=== PATIENT | female | born 1990 | race Caucasian/White ===

== ENCOUNTER 2020-03-27 15:24 | Emergency (ER) | payer OTHER ==
[~2020-03-27] VITALS: Ht 162.6 cm; Wt 79.6 kg
[2020-03-27] MEDS ORDERED: TRAZ-257 PO (15:32)
[2020-03-27] MEDS ORDERED: BUSP10TA PO (15:32)
[2020-03-27] MEDS ORDERED: BUPR15TA PO (15:32)
[2020-03-27] MEDS ORDERED: LAMI1TAB7 PO (15:32)
[2020-03-27] MEDS ORDERED: NS 1,000 ML IV ONE (16:30)
[2020-03-27] MEDS ORDERED: ONDANSETRON 4MG/2ML VIAL IV ONE (16:30)
--- NOTE | 2020-03-27 16:57 | REP ---
INDICATION: vaginal bleeding and cramping. COMPARISON: None. TECHNIQUE: Transabdominal scanning is performed. FINDINGS: Scanning demonstrates a single living intrauterine gestation in a free-floating lie. The crown-rump length of the embryonic pole is 32 mm. This corresponds with a gestational age estimate of 10 weeks 0 days. Is heart rate is recorded at 170 beats per minute. There is a hypoechoic area 3.2 x 1.9 x 1.5 cm along the right lateral aspect of the gestational sac which may be a subchorionic bleed. No extra uterine abnormality is noted. IMPRESSION: 1. Viable single intrauterine gestation at 10 weeks 0 days by crown-rump length. ASHLEY by sonography October 23, 2020. 2. Hypoechoic avascular area 3.2 cm in diameter along the right lateral margin of the sac may be a subchorionic bleed. <Electronically signed by Jone Herrera > 03/27/20 [id number]
[2020-03-27 17:02] LABS: BASO % 0.4 % (0.0-1.0); EOS # 0.1 10^3/uL (0.0-0.5); EOS % 0.6 % (0.0-3.0); HEMATOCRIT 39.5 % (36.0-47.0); HEMOGLOBIN 12.9 g/dl (12.0-15.5); LYMPH # 1.3 10^3/uL (1.5-5.0); LYMPH % 15.1 % (24.0-44.0); MEAN CORPUSCULAR HGB CONC 32.7 g/dl (32.0-36.5); MEAN CORPUSCULAR VOLUME 85.7 fl (80.0-96.0); MONO # 0.6 10^3/uL (0.0-0.8); MONO % 7.2 % (0.0-5.0); NEUTROPHILS # 6.5 10^3/uL (1.5-8.5); NEUTROPHILS % 76.2 % (36.0-66.0); PLATELET COUNT, AUTOMATED 236 10^3/uL (150-450); RED BLOOD COUNT 4.61 10^6/uL (4.00-5.40); WHITE BLOOD COUNT 8.5 10^3/uL (4.0-10.0)
[2020-03-27 17:45] LABS: ALBUMIN 3.8 GM/DL (3.2-5.2); ALT/SGPT 24 U/L (12-78); BILIRUBIN,DIRECT < 0.1 MG/DL (0.0-0.2); BILIRUBIN,TOTAL 0.3 MG/DL (0.2-1.0); HCG, SERUM QUANTITATIVE 63800 MIU/ML
[2020-03-27] MEDS ORDERED: RHOGAM 300 MCG (1500 IU) INJ (J2790) IM ONE (17:45)
[2020-03-27 18:42] VITALS: BP 115/68
== END 2020-03-27 18:44 | disposition home or self-care (01) ==
LOC: M ED 15:24
DX: O20.8 Other hemorrhage in early pregnancy (principal); Z3A.10 10 weeks gestation of pregnancy; Z79.899 Other long term (current) drug therapy; Z88.0 Allergy status to penicillin; Z88.8 Allergy status to other drugs, medicaments and biological substances; Z88.5 Allergy status to narcotic agent
CPT/HCPCS: 76801; 80047; 80076; 84702; 85025; 86850; 86901; 96361; 96372; 96374; 99284; J2405; J2790

== ENCOUNTER 2020-09-05 12:03 | Outpatient (CLI) | payer OTHER ==
[~2020-09-05] VITALS: Ht 162.6 cm; Wt 95.0 kg
[~2020-09-05 12:03] MED LIST: BUPR15TA PO; BUSP10TA PO; LAMI1TAB7 PO; TRAZ-257 PO
[2020-09-05 12:10] VITALS: BP 120/61
[2020-09-05] MEDS ORDERED: IRON SUCROSE 300 MG in NS 250 ML OVER 90 MIN. IV ONE (12:30)
[2020-09-05 13:15] VITALS: BP 113/63
[2020-09-05 14:15] VITALS: BP 103/55
[2020-09-05 15:15] VITALS: BP 101/57
[2020-09-05 15:44] VITALS: BP 108/62
== END 2020-09-05 15:50 | disposition home or self-care (01) ==
LOC: M INFU 12:03
PROVIDERS: ATTEND Obstetrics & Gynecology
DX: O99.013 Anemia complicating pregnancy, third trimester (principal); D50.9 Iron deficiency anemia, unspecified; Z3A.32 32 weeks gestation of pregnancy
CPT/HCPCS: 96365; 96366; J1756

== ENCOUNTER 2020-09-19 12:32 | Outpatient (CLI) | payer OTHER ==
[~2020-09-19] VITALS: Ht 162.6 cm; Wt 95.0 kg
[~2020-09-19 12:32] MED LIST changes: +IRON SUCROSE 300 MG in NS 250 ML OVER 90 MIN. IV ONE
[2020-09-19 12:58] VITALS: BP 107/56
[2020-09-19 13:45] VITALS: BP 115/58
[2020-09-19 14:51] VITALS: BP 115/66
== END 2020-09-19 15:00 | disposition home or self-care (01) ==
LOC: M INFU 12:32
PROVIDERS: ATTEND Obstetrics & Gynecology
DX: O99.013 Anemia complicating pregnancy, third trimester (principal); D50.9 Iron deficiency anemia, unspecified; Z3A.32 32 weeks gestation of pregnancy
CPT/HCPCS: 96365; 96366; J1756

== ENCOUNTER → 2020-09-20 | Outpatient (CLI) | payer OTHER ==
[~2020-09-20] MED LIST changes: -IRON SUCROSE 300 MG in NS 250 ML OVER 90 MIN. IV ONE
--- NOTE | 2020-09-20 12:03 | REP ---
INDICATION: GROWTH. COMPARISON: None. TECHNIQUE: Transabdominal obstetric sonography. FINDINGS: Scanning through the gravid uterus demonstrates a viable single intrauterine gestation in cephalic lie. motion is observed and heart rate is recorded at 163 beats per minute. A 3 anterior right lateral placenta is seen, grade 1, without evidence of placenta previa. Closed cervical length is measured at 4.5 cm transabdominally. No extrauterine abnormality is observed. Amniotic fluid is subjectively low, BETI 7.0 cm (8.0-24.8 cm).. The following anatomic structures are identified felt to be unremarkable: cranium, cavum septum pellucidum and falx, four-chamber heart with left ventricular outflow tract view, diaphragm, left-sided stomach, left kidney, urinary bladder. The following additional anatomic structures are less than optimally seen due to position and advanced gestational age: Cerebral ventricles and choroid plexus, cerebellum, face and profile nose and lips, lungs, right ventricular cardiac outflow tract view, right kidney, spine, upper and lower extremities. A three-vessel cord is seen.. Biometry chart: BPD 9.4 cm, 38 weeks 3 days Head circumference 33.5 cm, 38 weeks 2 days Abdominal circumference 33.1 cm, 37 weeks 0 days Femur length 7.3 cm, 37 weeks 1 day Humeral length 6.5 cm, 37 weeks 5 days HC AC ratio normal 1.01 Cephalic index normal 0.80 Estimated weight 3175 g, 6 lb 15 oz, greater than 90th percentile for 35 weeks 2 days IMPRESSION: Viable single intrauterine gestation at 37 weeks 5 days by today's composite sonographic criteria. ASHLEY by today's sonography October 06, 2020. No complication identified. Expected gestational age estimate by LMP 35 weeks 2 days , ASHLEY by LMP October 23, 2020. Estimated weight is greater than 90th percentile for that gestational age estimate. Amniotic fluid is somewhat low subjectively and BETI is 7.0 cm. <Electronically signed by Jone Hrerera > 09/20/20 [id number]
== END ==
LOC: M RAD 10:14
PROVIDERS: ATTEND Obstetrics & Gynecology
DX: Z36.4 Encounter for antenatal screening for fetal growth retardation (principal); Z3A.37 37 weeks gestation of pregnancy; Z87.59 Personal history of other complications of pregnancy, childbirth and the puerperium

== ENCOUNTER 2020-10-08 14:28 | Outpatient (CLI) | payer OTHER ==
[~2020-10-08] VITALS: Ht 162.6 cm; Wt 95.6 kg
[2020-10-08] VITALS (9 sets, daily range): BP systolic 89–116; BP diastolic 51–64
[2020-10-08] MEDS ORDERED: PRENTAB9 PO (14:53)
[2020-10-08] MEDS ORDERED: HOME MED LIST COMPLETE! XX SCH (14:55)
[2020-10-08] MEDS ORDERED: ACETAMINOPHEN 500 MG TAB PO ONE (15:15)
[2020-10-08] MEDS ORDERED: diphenhydrAMINE 50MG CAP PO ONE (15:15)
[2020-10-08] MEDS ORDERED: diphenhydrAMINE 25MG CAP PO ONE (15:30)
[2020-10-08 15:54] LABS: AMORPHOUS SEDIMENT SMALL (NEGATIVE); APPEARANCE, URINE CLOUDY (CLEAR); BACTERIA, URINE AUTO 1+ (NEGATIVE); BILIRUBIN, URINE AUTO NEGATIVE (NEGATIVE); BLOOD, URINE BLOOD NEGATIVE (NEGATIVE); COLOR, URINE YELLOW (YELLOW); GLUCOSE, URINE (UA) AUTO NEGATIVE (NEGATIVE); KETONE, URINE AUTO NEGATIVE (NEGATIVE); LEUKOCYTE ESTERASE, URINE AUTO NEGATIVE (NEGATIVE); MUCUS, URINE SMALL (NEGATIVE); NITRITE, URINE AUTO NEGATIVE (NEGATIVE); PROTEIN, URINE AUTO NEGATIVE (NEGATIVE); RBC, URINE AUTO 1 /HPF (0-3); SPECIFIC GRAVITY URINE AUTO 1.012 (1.002-1.035); SQUAMOUS EPITHELIAL CELL UR AU 2 /HPF (0-6); UROBILINOGEN, URINE AUTO 0.2 mg/dL (0.0-2.0); WBC, URINE AUTO 2 /HPF (0-3)
--- NOTE | 2020-10-08 16:03 | IPNPDOC ---
Text Note Date of Service The patient was seen on 10/08/20. NOTE S: 30yo ASHLEY [id number] @37+6 Presenting with c/o headache and blurry vision. States not relieved by 1000mg tylenol at 0800. States drinking several cups of water. Normal fasting and postprandial glucose stated today. Denies bleeding, LOF, states irregular cramping and positive movement. States adherence to medication regimen. complicated by epilepsy, Bipolar type II, A1GDM, maternal obesity, and section x3. O: BP 92/51 RNST, fhr 140, +accel, -decel, irregular contractions noted, mild to palpation, soft tone. UA collected and sent Pt provided oral hydration, 50mg po benadryl, 1000mg po tylenol report given to Dr. Rosales for change of shift VS,Fishbone, I+O VS, Fishbone, I+O Vital Signs Date Time Temp Pulse Resp B/P (MAP) Pulse Ox O2 Delivery O2 Flow Rate FiO2 10/08/20 15:38 88 18 94/53 (67) Room Air 10/08/20 14:43 98.0 [facility] Oct 08, 2020 16:03
[2020-10-08 20:01] LABS: HEMATOCRIT 32.9 % (36.0-47.0); HEMOGLOBIN 10.2 g/dl (12.0-15.5); MEAN CORPUSCULAR HEMOGLOBIN 27.3 pg (27.0-33.0); PLATELET COUNT, AUTOMATED 173 10^3/uL (150-450); RED BLOOD COUNT 3.74 10^6/uL (4.00-5.40); WHITE BLOOD COUNT 7.3 10^3/uL (4.0-10.0)
[2020-10-08 20:15] LABS: CREATININE,RANDOM URINE 51.7 MG/DL; TOTAL PROTEIN,RANDOM URINE 12.5 MG/DL (0.0-12.0)
[2020-10-08 20:29] LABS: ALT/SGPT 16 U/L (12-78); BILIRUBIN,TOTAL 0.3 MG/DL (0.2-1.0); CREATININE FOR GFR 0.38 MG/DL (0.55-1.30); GLOMERULAR FILTRATION RATE > 60.0 (>60); LDH LACTATE DEHYDROGENASE 178 U/L (84-246); URIC ACID 2.8 MG/DL (2.6-6.0)
--- NOTE | 2020-10-08 20:33 | IPNPDOC ---
Text Note Date of Service The patient was seen on 10/08/20. NOTE Item Value Date Time Creatinine 0.38 MG/DL L 10/08/201947 Glomerular Filtration Rate > 60.0 10/08/201947 Uric Acid 2.8 MG/DL 10/08/201947 Total Bilirubin 0.3 MG/DL 10/08/201947 Aspartate Amino Transf (AST/SGOT) 11 U/L 10/08/201947 Alanine Aminotransferase (ALT/SGPT) 16 U/L 10/08/201947 Lactate Dehydrogenase 178 U/L 10/08/201947 Item Value Date Time White Blood Count 7.3 10^3/uL 10/08/201947 Red Blood Count 3.74 10^6/uL L 10/08/201947 Hemoglobin 10.2 g/dl L 10/08/201947 Hematocrit 32.9 % L 10/08/201947 Mean Corpuscular Volume 88.0 fl 10/08/201947 Mean Corpuscular Hemoglobin 27.3 pg 10/08/201947 Mean Corpuscular Hemoglobin Concent 31.0 g/dl L 10/08/201947 Red Cell Distribution Width 19.1 % H 10/08/201947 Platelet Count 173 10^3/uL 10/08/201947 Item Value Date Time Urine Color YELLOW 10/08/20 1535 Urine Appearance CLOUDY H 10/08/20 1535 Urine pH 7.0 UNITS 10/08/20 1535 Urine Specific [place] 1.012 10/08/20 1535 Urine Protein NEGATIVE mg/dL 10/08/20 1535 Urine Glucose (Auto)(UA) NEGATIVE mg/dL 10/08/20 1535 Urine Ketones (Auto) NEGATIVE mg/dL 10/08/20 1535 Urine Blood NEGATIVE 10/08/20 1535 Urine Nitrite NEGATIVE 10/08/20 1535 Urine Urobilinogen 0.2 mg/dL 10/08/20 1535 Urine Bilirubin NEGATIVE 10/08/20 1535 Urine Leukocyte Esterase (Auto) NEGATIVE 10/08/20 1535 Urine WBC (Auto) 2 /HPF 10/08/20 1535 Urine RBC (Auto) 1 /HPF 10/08/20 1535 Urine Hyaline Casts (Auto) 1 /LPF 10/08/20 1535 Urine Bacteria (Auto) 1+ H 10/08/20 1535 Urine Squamous Epithelial Cells 2 /HPF 10/08/20 1535 Urine Amorphous Sediment (Auto) SMALL H 10/08/20 1535 Urine Mucus (Auto) SMALL 10/08/20 1535 Urine Random Creatinine 51.7 MG/DL 10/08/20 1535 Urine Random Total Protein 12.5 MG/DL H 10/08/20 1535 Vital Signs Label Value Date Time Patient Temperature 97.8 degrees F 10/08/20 1735 Temperature Source Temporal 10/08/20 1735 Pulse 87 10/08/20 1735 Respiratory Rate 18 bpm 10/08/20 1735 Blood Pressure Assessment 116/64 (81) 10/08/20 1735 Source Automatic Cuff (NIBP) Blood Pressure Assessment 90/53 (65) 10/08/20 1705 Source Automatic Cuff (NIBP) Respiratory Rate 16 bpm 10/08/20 1705 Pulse 80 10/08/20 1705 Pulse 80 10/08/20 1611 Respiratory Rate 18 bpm 10/08/20 1611 Blood Pressure Assessment 100/58 (72) 10/08/20 1611 Source Automatic Cuff (NIBP) Blood Pressure Assessment 99/54 (69) 10/08/20 1551 Source Automatic Cuff (NIBP) Respiratory Rate 18 bpm 10/08/20 1551 Pulse 85 10/08/20 1551 Pulse 88 10/08/20 1538 Respiratory Rate 18 bpm 10/08/20 1538 Blood Pressure Assessment 94/53 (67) 10/08/20 1538 Source Automatic Cuff (NIBP) Blood Pressure Assessment 89/52 (64) 10/08/20 1523 Source Automatic Cuff (NIBP) Respiratory Rate 16 bpm 10/08/20 1523 Pulse 93 10/08/20 1523 10/08/20 2030 hours review triage . PATIENT CAME TO TRIAGE WITH COMPLAINTS OF HEADACHE AND BLURRED VISION. NOT RELIEVED WITH TYLENOL. . RISK FACTORS BIPOLAR EPILEPSY CS X 3 ANEMIA CHRONIC AGDM1 BMI 30.3 REVIEWED BP LOW THROUGH OUT REFLEXES NORMAL NO LIGHT SENSITIVITY NO RUQ PAIN . WITH HYDRATION HEADACHE RESOLVED VISUAL ISSUES RESOLVED . COUNSELED RE HYDRATION A ND BENADRYL AND TYLENOL DISCHARGED UNDELIVERED PRE E BLOOD WORK NORMAL. P/C RATIO .24 VS,Fishbone, I+O VS, Fishbone, I+O Laboratory Tests 10/08/20 19:48 Vital Signs Date Time Temp Pulse Resp B/P (MAP) Pulse Ox O2 Delivery O2 Flow Rate FiO2 10/08/20 17:35 97.8 87 18 116/64 (81) Room Air Mayank Rosales MD Oct 08, 2020 20:28
[2020-10-11] MEDS ORDERED: IBUP80TA (07:15)
[2020-10-11] MEDS ORDERED: BUSP15TA47 (07:15)
[2020-10-11] MEDS ORDERED: HYDR-3713 (07:15)
== END 2020-10-08 20:30 | disposition home or self-care (01) ==
LOC: M LDO 14:28
PROVIDERS: ATTEND Registered Nurse
DX: O26.893 Other specified pregnancy related conditions, third trimester (principal); R51.9 Headache, unspecified; H53.8 Other visual disturbances; Z3A.37 37 weeks gestation of pregnancy; O99.353 Diseases of the nervous system complicating pregnancy, third trimester; G40.909 Epilepsy, unspecified, not intractable, without status epilepticus; O99.343 Other mental disorders complicating pregnancy, third trimester; F31.9 Bipolar disorder, unspecified; O99.213 Obesity complicating pregnancy, third trimester; E66.9 Obesity, unspecified; O99.013 Anemia complicating pregnancy, third trimester; D64.9 Anemia, unspecified; Z79.899 Other long term (current) drug therapy
CPT/HCPCS: 36415; 59025; 81001; 82247; 82565; 82570; 83615; 84156; 84450; 84460; 84550; 85027; G0378; G0463

== ENCOUNTER 2020-10-10 11:12 | Outpatient (CLI) | payer OTHER ==
[~2020-10-10] VITALS: Ht 162.6 cm; Wt 95.0 kg
[~2020-10-10 11:12] MED LIST changes: +IRON SUCROSE 300 MG in NS 250 ML OVER 90 MIN. IV ONE; +PRENTAB9 PO
[2020-10-10 11:15] VITALS: BP 120/66
[2020-10-10 12:30] VITALS: BP 123/68
[2020-10-10 13:30] VITALS: BP 118/60
[2020-10-10 13:47] VITALS: BP 121/66
[2020-10-11] MEDS ORDERED: HYDR-3713 (07:15)
[2020-10-11] MEDS ORDERED: IBUP80TA (07:15)
[2020-10-11] MEDS ORDERED: BUSP15TA47 (07:15)
== END 2020-10-10 13:45 | disposition home or self-care (01) ==
LOC: M INFU 11:12
PROVIDERS: ATTEND Obstetrics & Gynecology
DX: O99.013 Anemia complicating pregnancy, third trimester (principal); D50.9 Iron deficiency anemia, unspecified; Z3A.37 37 weeks gestation of pregnancy
CPT/HCPCS: 96365; J1756

== ENCOUNTER 2020-10-13 22:03 | Outpatient (CLI) | payer OTHER ==
[~2020-10-13] VITALS: Ht 162.6 cm; Wt 95.6 kg
[~2020-10-13 22:03] MED LIST changes: +BUSP15TA47; +HYDR-3713; +IBUP80TA; -IRON SUCROSE 300 MG in NS 250 ML OVER 90 MIN. IV ONE
[2020-10-13 22:48] VITALS: BP 111/65
[2020-10-13] MEDS ORDERED: PRENTAB9 PO (22:57)
[2020-10-13] MEDS ORDERED: LR 1,000 ML IV ONE (23:50)
[2020-10-14 01:22] VITALS: BP 109/64
--- NOTE | 2020-10-14 01:51 | IPNPDOC ---
Obstetrical Progress Note Date of Service Oct 14, 2020 Subjective 30 yo @ 38+5 by 1st US who presents for labor check. reports contractions since 3 pm that has gotten closer and more painful. also reports leakage off fluids since the same time. she denies any vaginal bleeding or decreased movement. couple had intercourse the night prior. she is scheduled for c/s with Dr. DUMONT on . she denies any fevers or chills. she has no other concerns. Objective Vital Signs Date Time Temp Pulse Resp B/P (MAP) Pulse Ox O2 Delivery O2 Flow Rate FiO2 10/14/20 01:22 80 17 109/64 (79) 10/13/20 22:49 98.4 Assessment Heart Rate (FHR): 150 Variability: Moderate Accelerations: Positive Heart Rate Tracing: Category I Tocometer Contractions: Yes Frequency: every 3-7 min. Duration: less than 60 seconds Sterile Vaginal Examination Dilation: 1cm Effacement (%): 30% Station: -3 Cervical Consistency: Firm Cervical Position: Posterior Postion/Presentation: Cephalic presentation Assessment and Plan Age: 30 Status: Reassuring Group B Streptococcus: Negative Additional Comments 30 yo @ 38+5 by 1st US who presents for labor check. SROM CHECK ( NEGATIVE- BETI 11, MVP 4.9) Neg ferning, pooling and nitrazine test LABOR CHECK DONE, SVE 1/T/H, Unchanged after 2 hrs of observation Contractions spaced out after 1L of IV fluids. Discharge after strict return precautions F/U as previously scheduled. DORIS BISHOP MD Oct 14, 2020 01:51
== END 2020-10-14 01:30 | disposition home or self-care (01) ==
LOC: M LDO 22:03
PROVIDERS: ATTEND Obstetrics & Gynecology
DX: O47.1 False labor at or after 37 completed weeks of gestation (principal); Z3A.38 38 weeks gestation of pregnancy; O26.893 Other specified pregnancy related conditions, third trimester; N89.8 Other specified noninflammatory disorders of vagina
CPT/HCPCS: 59025; 96360; G0378; G0463

== ENCOUNTER 2020-10-18 06:28 | Inpatient (IN) | payer OTHER ==
[~2020-10-18] VITALS: Ht 162.6 cm; Wt 93.0 kg
[2020-10-18] MEDS ORDERED: BUSP15TA47 PO (07:08)
[2020-10-18] MEDS ORDERED: BUSP5TA PO (07:08)
[2020-10-18] MEDS ORDERED: LACTATED RINGER'S 1000 ML IV STA (07:14)
[2020-10-18] MEDS ORDERED: NS 1,000 ML IV SCH (07:15)
[2020-10-18] MEDS ORDERED: ceFAZolin SOD 2 GM in IV 1 EA IV ONE ×2 (07:15→07:30)
[2020-10-18] MEDS ORDERED: OXYTOCIN INJ 10 UNITS/ML VIAL (J2590) IV PRN (07:15)
[2020-10-18] MEDS ORDERED: BICITRA 30ML SOLN UDC PO ONE ×2 (07:15→07:30)
[2020-10-18] MEDS ORDERED: LR 1,000 ML IV SCH ×4 (07:15→10:30)
[2020-10-18] MEDS ORDERED: LR 1,000 ML IV ONE (07:30)
[2020-10-18 07:31] VITALS: BP 103/55
[2020-10-18 07:38] LABS: HEMATOCRIT 34.4 % (36.0-47.0); HEMOGLOBIN 10.8 g/dl (12.0-15.5); MEAN CORPUSCULAR HEMOGLOBIN 27.7 pg (27.0-33.0); MEAN CORPUSCULAR HGB CONC 31.4 g/dl (32.0-36.5); MEAN CORPUSCULAR VOLUME 88.2 fl (80.0-96.0); PLATELET COUNT, AUTOMATED 187 10^3/uL (150-450); WHITE BLOOD COUNT 8.1 10^3/uL (4.0-10.0)
[2020-10-18] MEDS ORDERED: KETOROLAC 60MG 2ML VIAL As Ordered ONE (08:18)
[2020-10-18] MEDS ORDERED: OXYTOCIN INJ 10 UNITS/ML VIAL (J2590) As Ordered ONE (08:18)
[2020-10-18] MEDS ORDERED: dexameTHASONE 4 MG/ML 1ML VIAL (J1100 PER 1MG) As Ordered ONE (08:18)
[2020-10-18] MEDS ORDERED: ONDANSETRON 4MG/2ML VIAL As Ordered ONE (08:18)
[2020-10-18] MEDS ORDERED: fentaNYL 100 MCG/2 ML INJECTION (J3010) As Ordered ONE (08:19)
[2020-10-18] MEDS ORDERED: MORPHINE PRES-FREE INJ 10 MG/10 ML VIAL (J2274) As Ordered ONE (08:20)
[2020-10-18] MEDS ORDERED: HOME MED LIST COMPLETE! XX SCH (08:30)
[2020-10-18] MEDS ORDERED: diphenhydrAMINE 50MG/ML VIAL (J1200) IV PRN (08:43)
[2020-10-18] MEDS ORDERED: NALOXONE INJ 0.4MG/1ML VIAL (J2310 PER 1MG) IV PRN ×2 (08:43)
[2020-10-18] MEDS ORDERED: NALBUPHINE HCL 10 MG/ML AMP (J2300) IV PRN (08:43)
[2020-10-18] MEDS ORDERED: ONDANSETRON 4MG/2ML VIAL IV PRN ×2 (08:43→10:30)
[2020-10-18] MEDS ORDERED: METOCLOPRAMIDE INJ 10MG/2ML VIAL (J2765 PER 1) IV PRN ×2 (08:43→10:30)
[2020-10-18] MEDS ORDERED: PHENYLephrine 500MCG 5ML (100MCG/ML) SYRINGE As Ordered ONE (09:01)
[2020-10-18] MEDS ORDERED: ACETAMINOPHEN 500 MG TAB PO PRN (10:15)
[2020-10-18] MEDS ORDERED: ONDANSETRON 4 MG ORAL DISINTEGRATING TAB PO PRN (10:15)
[2020-10-18] MEDS ORDERED: OXYTOCIN DRIP 30 UNITS in IV 1 EA IV SCH (10:15)
[2020-10-18] MEDS ORDERED: RHOGAM 300 MCG (1500 IU) INJ (J2790) IM SCH (10:15)
[2020-10-18] MEDS ORDERED: PROMETHAZINE 25 MG TAB PO PRN (10:15)
[2020-10-18] MEDS ORDERED: ACETAMINOPHEN TAB 650MG DOSE (2X325MG) PO PRN (10:15)
[2020-10-18] MEDS ORDERED: MEASLES,MUMPS,RUBELLA VACCINE INJ (MMR-II) (90707) SC SCH (10:15)
[2020-10-18] MEDS ORDERED: fentaNYL 100 MCG/2 ML INJECTION (J3010) IV PRN (10:30)
[2020-10-18] MEDS ORDERED: OXYTOCIN 30 UNITS IN 0.9% NaCl 500ML IV BAG (J2590) As Ordered ONE (10:35)
[2020-10-18] MEDS ORDERED: NORCO, ANEXSIA 5/325MG TABLET (HYDROcodone/ACETAMINOPHEN) As Ordered ONE (11:19)
[2020-10-18] MEDS: NORCO, ANEXSIA 5/325MG TABLET (HYDROcodone/ACETAMINOPHEN) PO PRN ×4 (11:25→17:49)
[2020-10-18 11:40] VITALS: BP 109/56
[2020-10-18 12:10] VITALS: BP 106/60
--- NOTE | 2020-10-18 13:00 | RO ---
OPERATIVE NOTE DATE OF OPERATION: 10/18/2020 PREOPERATIVE DIAGNOSES: 1. History of x3. 2. Satisfied parity. 3. Obesity. 4. Anemia. POSTOPERATIVE DIAGNOSIS: 1. History of x3. 2. Satisfied parity. 3. Obesity. 4. Anemia. PROCEDURE: Repeat section with bilateral tubal ligation. SURGEON: Adarsh Humphrey DO DIRECTOR ONLINE MARKETING: Luz Elena Adams CNM ANESTHESIA: Spinal. IV FLUIDS: 1000 mL lactated ringers. URINE OUTPUT: 150 mL via Rolle catheter. EBL: 500 mL. ANTIBIOTICS: 2 grams Ancef before case start. COMPLICATIONS: None. OPERATIVE FINDINGS: Viable female infant found and delivered in cephalic presentation. Clear amniotic fluid. weight was 3700 grams or 8 pounds 3 ounces. Apgars 9 and 9. Normal appearing uterus. Normal fallopian tubes and ovaries bilaterally. DESCRIPTION OF PROCEDURE: The risks, benefits, indications, and alternatives of the procedure were reviewed with the patient and informed consent was obtained. The patient was taken to the operating room where spinal anesthesia was obtained and found to be adequate. She was then prepped and draped in the usual sterile fashion in the dorsal supine position with a leftward tilt. A surgical time out was then performed and the patient's identify and planned procedure were verified with the operative team. A Pfannenstiel skin incision was then made with a scalpel and carried through to the underlying layer of fascia with the Bovie electrocautery. The fascia was incised in the midline and the incision was extended laterally with Ellington scissors. There was fascial scarring that added 15 minutes of dissection to the case. The superior aspect of the fascial incision was grasped with Billy clamps, elevated, and the underlying rectus muscles were dissected off bluntly and with the scalpel. Attention was then turned to the inferior aspect of this incision, which in similar fashion, was grasped, tented up with Billy clamps, and the rectus muscles were dissected off via blunt dissection and with Ellington scissors. The rectus muscles were then in the midline. The peritoneum was identified, tented up, and entered digitally. The peritoneal incision was then extended horizontally and superiorly with good visualization of the bladder. A Mobius self-containing retractor was then inserted into the abdomen as a means for exposure. The lower uterine segment was then incised in a transverse fashion with the scalpel. The amniotic sac was artificially ruptured, productive of clear fluid. The uterine incision was then extended manually. The was found to be in cephalic presentation. The baby was delivered without difficulty through the hysterotomy site. The cord was then doubly clamped and cut. The was handed off to the awaiting team. The placenta was then removed manually with gentle traction on the umbilical cord. The uterus was then cleared of all clots and debris. The uterine incision was then repaired with #0 Monocryl suture in a running locked fashion. An additional intlxp-li-ocrie suture of #0 Monocryl was placed at the left lateral aspect of the hysterotomy to achieve excellent hemostasis. The pericolic gutters were then inspected and cleared of all clots and debris. The hysterotomy was noted to be hemostatic. The patient's left fallopian tube was then grasped with a Kehinde clamp and followed out to its fimbriated end. The mesosalpinx was incised parallel to the fallopian tube in an avascular plane using Bovie electrocautery. Two free ties of plain catgut suture were passed through the defect around the fallopian tube at its proximal and distal segments and they were then tied. The tubal segment between the two sutures was then excised using Metzenbaum scissors. Approximately 2 cm of tube was excised and sent to pathology. Excellent hemostasis was noted. An identical procedure was then performed on the patient's right fallopian tube. Excellent hemostasis was noted at both tubal segments bilaterally at completion. The hysterotomy was again inspected and oozing was noted at the midline. This was controlled with Bovie electrocautery. Esdras was then placed at the hysterotomy and lower uterine segment to achieve excellent hemostasis. The peritoneum was then closed with a running stitch of 3-0 Vicryl suture. The rectus muscles were then loosely reapproximated using 3-0 Vicryl suture. The fascia was then closed with #0 Vicryl suture in a running fashion. Irrigation was then performed to good effect. The subcutaneous fat was then closed with 3-0 vicryl suture in a running fashion. The skin was closed with 4-0 Monocryl suture in a subcuticular fashion. The incision was dressed with Steri-Strips and an Optifoam dressing was applied. At the completion of the case a bimanual exam was performed which revealed good uterine tone and minimal vaginal bleeding. The patient tolerated the procedure well. The sponge, instrument, and needle counts were correct x3. The patient was taken to the recovery room in stable condition. ANDRES
[2020-10-18 13:10] VITALS: BP 103/65
[2020-10-18] MEDS ORDERED: LAMO100T3 PO (14:19)
[2020-10-18] MEDS ORDERED: FAMOTIDINE INJ 20MG/2ML VIAL (S0028 PER 1) IVP ONE (15:00)
[2020-10-18] MEDS: KETOROLAC 30 MG/ML 1ML VIAL IV SCH ×2 (15:10→22:13)
[2020-10-18 18:00] VITALS: BP 99/55
[2020-10-18] MEDS: lamoTRIgine 100MG TAB PO SCH (20:24)
[2020-10-18] MEDS: buPROPion **XL** TABLET 150MG (WELLBUTRIN XL) PO SCH (20:24)
[2020-10-18 22:00] VITALS: BP 108/61
[2020-10-18] MEDS: DOCUSATE SODIUM 100MG CAPSULE PO PRN (22:12)
[2020-10-19] MEDS: NORCO, ANEXSIA 5/325MG TABLET (HYDROcodone/ACETAMINOPHEN) PO PRN ×3 (01:36→17:26)
[2020-10-19 01:58] VITALS: BP 107/54
[2020-10-19] MEDS: KETOROLAC 30 MG/ML 1ML VIAL IV SCH (04:22)
[2020-10-19 06:00] VITALS: BP 102/56
--- NOTE | 2020-10-19 06:18 | IPNPDOC ---
Progress Note Date of Service: Oct 19, 2020 Day#: 1 Progress Note SUBJECT: Ms. Simms is a 30yo POD0 after a repeat with a bilateral tubal ligation. She has been ambulating, voiding spontaneously without issue and tolerating regular diet. Breast feeding without issue. Reports lochia is less than a normal period]. Patient is ambulating well. [Reports some cramping with . Denies any pain. Voiding and passing flatus without difficulty]. OBJECTIVE: VITAL SIGNS: Within normal limits, afebrile. Alert and oriented times three. no increased wob Heart rate: non-tachycardic Abdomen: Fundus firm at U-2. Soft, appropriate tenderness. Pfannensteil incision is covered with optifoam there is some strikethrough but it is non-progressing. [Minimal] lochia. ASSESSMENT: Ms. Simms is a 30yo POD0 after a repeat with a bilateral tubal ligation. Vitals within normal limits, afebrile, hemodynamically stable with no evidence of infection. PLAN: 1. Discharge to home likely tomorrow 2. Tylenol and Motrin for pain. 3. Encourage breast feeding and ambulation. 4. tubal ligation completed 5. Routine PP visit in 2 and 6 weeks in clinic. VS, I&O, 24H, Fishbone Vital Signs/I&O Vital Signs Date Time Temp Pulse Resp B/P (MAP) Pulse Ox O2 Delivery O2 Flow Rate FiO2 10/19/20 06:00 98.2 89 16 102/56 (71) 99 Room Air I&O- Last 24 Hours up to 6 AM 10/19/20 06:00 Intake Total 3797 ml Output Total 3430 ml Balance 367 ml Laboratory Data 24H LABS Laboratory Tests 2 10/18/20 06:35: Serology Scanned Report Hepatitis B Testing 10/18/20 07:14: Nucleated Red Blood Cells % (auto) 0.0, Syphilis Serology NONREACTIVE CBC/BMP Laboratory Tests 10/18/20 07:14 BERLIN RAHMAN DO Oct 19, 2020 06:18
[2020-10-19 07:44] LABS: HEMATOCRIT 27.3 % (36.0-47.0); MEAN CORPUSCULAR HEMOGLOBIN 27.4 pg (27.0-33.0); MEAN CORPUSCULAR HGB CONC 31.1 g/dl (32.0-36.5); MEAN CORPUSCULAR VOLUME 88.1 fl (80.0-96.0); PLATELET COUNT, AUTOMATED 143 10^3/uL (150-450); WHITE BLOOD COUNT 9.6 10^3/uL (4.0-10.0)
[2020-10-19 08:02] LABS: HEMOGLOBIN 8.5 g/dl (12.0-15.5)
[2020-10-19] MEDS: DOCUSATE SODIUM 100MG CAPSULE PO PRN ×2 (09:19→19:51)
[2020-10-19] MEDS: OMEPRAZOLE 20 MG CAP PO SCH (09:19)
[2020-10-19] MEDS: SIMETHICONE 80MG CHEW TAB PO PRN ×2 (09:19→19:51)
[2020-10-19] MEDS: PRENATAL VITAMINS CHEWABLE TABLET PO SCH (09:19)
[2020-10-19] MEDS: IBUPROFEN 800 MG TAB PO SCH ×2 (11:33→19:47)
[2020-10-19 14:00] VITALS: BP 108/63
[2020-10-19 18:00] VITALS: BP 101/59
[2020-10-19] MEDS: lamoTRIgine 100MG TAB PO SCH (21:04)
[2020-10-19] MEDS: buPROPion **XL** TABLET 150MG (WELLBUTRIN XL) PO SCH (21:04)
[2020-10-19 22:14] VITALS: BP 111/63
[2020-10-20] MEDS: NORCO, ANEXSIA 5/325MG TABLET (HYDROcodone/ACETAMINOPHEN) PO PRN ×2 (01:06→08:15)
[2020-10-20 02:21] VITALS: BP 125/62
[2020-10-20] MEDS: IBUPROFEN 800 MG TAB PO SCH ×2 (04:17→11:41)
[2020-10-20 06:51] VITALS: BP 116/64
--- NOTE | 2020-10-20 07:48 | OBDS ---
[facility] Obstetrical Discharge Sum. Obstetrical Discharge Summary Date: Oct 20, 2020 Labor Patient admitted for scheduled repeat at term with BTL. Procedure and course uncomplicated. DATE OF OPERATION: 10/18/2020 PREOPERATIVE DIAGNOSES: 1. History of x3. 2. Satisfied parity. 3. Obesity. 4. Anemia. POSTOPERATIVE DIAGNOSIS: 1. History of x3. 2. Satisfied parity. 3. Obesity. 4. Anemia. PROCEDURE: Repeat section with bilateral tubal ligation. SURGEON: Adarsh Humphrey DO GROUNDMAN: Luz Elena Adams CNM ANESTHESIA: Spinal. IV FLUIDS: 1000 mL lactated ringers. URINE OUTPUT: 150 mL via Rolle catheter. EBL: 500 mL. ANTIBIOTICS: 2 grams Ancef before case start. COMPLICATIONS: None. OPERATIVE FINDINGS: Viable female infant found and delivered in cephalic presentation. Clear amniotic fluid. weight was 3700 grams or 8 pounds 3 ounces. Apgars 9 and 9. Normal appearing uterus. Normal fallopian tubes and ovaries bilaterally. Delivery Day of discharge note- SUBJECT: Ms. Simms is a 30yo POD2 after a repeat with a bilateral tubal ligation. She has been ambulating, voiding spontaneously without issue and tolerating regular diet. Breast feeding without issue. Reports lochia is less than a normal period. She notes some tenderness on palpation of her lower sternum which she feels is where pressure was applied during delivery, and also reports some low pelvic pain. States she has just started passing flatus and has not had BM in approximately 3 days. Otherwise without complaint OBJECTIVE: VITAL SIGNS: Within normal limits, afebrile. Alert and oriented times three. no increased wob Heart rate: non-tachycardic Abdomen: Fundus firm at U-2. Soft, appropriate tenderness. Pfannensteil incision is covered with optifoam there is some strikethrough but it is non-progressing. Vital Signs Date Time Temp Pulse Resp B/P (MAP) Pulse Ox O2 Delivery O2 Flow Rate FiO2 10/20/20 06:51 97.9 89 18 116/64 (81) 98 Room Air 10/20/20 02:21 97.3 71 18 125/62 (83) 98 Room Air 10/20/20 01:45 14 10/20/20 01:06 16 8/20/21 22:14 97.1 84 16 111/63 (79) 97 Room Air 10/19/20 18:19 16 10/19/20 18:00 98.5 85 16 101/59 (73) 98 Room Air 10/19/20 17:26 16 Room Air 10/19/20 14:00 96.9 85 16 108/63 (78) 93 Room Air 10/19/20 08:24 98.2 89 16 102/56 99 Room Air 10/19/20 07:54 98.2 89 16 102/56 99 Room Air ASSESSMENT: Ms. Simms is a 30yo POD2 after a repeat with a bilateral tubal ligation. Vitals within normal limits, afebrile, hemodynamically stable with no evidence of infection. PLAN: 1. Discharge to home likely today 2. Tylenol, Motrin and prn norco for pain. 3. Encourage breast feeding and ambulation. 4. tubal ligation completed for contraception 5. Routine PP visit in 2 and 6 weeks in clinic. A/P, Post Course List any complications Admission diagnosis: scheduled at term Discharge diagnosis: same as above Condition at Discharge: stable Discharge Instructions: home Activity: No heavy lifting and pelvic rest x6 weeks Diet: regular Medications: tylenol, motrin and norco prn pain Follow-up: call to schedule 2wk incision check and 6week visit NEVA KITCHEN M.D. Oct 20, 2020 07:48
[2020-10-20] MEDS: PRENATAL VITAMINS CHEWABLE TABLET PO SCH (08:15)
[2020-10-20] MEDS: OMEPRAZOLE 20 MG CAP PO SCH (08:15)
[2020-10-20] MEDS: SIMETHICONE 80MG CHEW TAB PO PRN (08:15)
== END 2020-10-20 12:40 | disposition home or self-care (01) | DRG 785 ==
LOC: M LDI 06:28 → M OBS 11:40
PROVIDERS: ADMIT Obstetrics & Gynecology; ATTEND Obstetrics & Gynecology
PROC: 0UB70ZZ Excision of Bilateral Fallopian Tubes, Open Approach (ICD-10-PCS; 2020-10-18)
PROC: 10D00Z1 Extraction of Products of Conception, Low, Open Approach (ICD-10-PCS; principal; 2020-10-18 08:30)
DX: O34.211 Maternal care for low transverse scar from previous cesarean delivery (principal); O99.02 Anemia complicating childbirth; D64.9 Anemia, unspecified; O99.214 Obesity complicating childbirth; E66.9 Obesity, unspecified; Z3A.39 39 weeks gestation of pregnancy; Z37.0 Single live birth; Z30.2 Encounter for sterilization

== ENCOUNTER 2022-06-27 09:44 | Outpatient (CLI) | payer OTHER ==
[~2022-06-27] VITALS: Ht 162.6 cm; Wt 90.9 kg
[~2022-06-27 09:44] MED LIST changes: +BUSP15TA47 PO; +BUSP5TA PO; +LAMO100T3 PO
[2022-06-27] MEDS ORDERED: FERRIC CARBOXYMALTOSE INJ 750 MG in NS 250 ML (>50kg) IV ONE ×3 (10:00)
[2022-06-27 10:15] VITALS: BP 113/65
[2022-06-27 11:35] VITALS: BP 124/72
== END 2022-06-27 11:35 | disposition home or self-care (01) ==
LOC: M INFU 09:44
PROVIDERS: ATTEND Nurse Practitioner Adult Health
DX: D50.9 Iron deficiency anemia, unspecified (principal); Z88.0 Allergy status to penicillin; Z88.5 Allergy status to narcotic agent
CPT/HCPCS: 96365; J1439

== ENCOUNTER 2022-07-04 10:00 | Outpatient (CLI) | payer OTHER ==
[~2022-07-04] VITALS: Ht 162.6 cm; Wt 90.9 kg
[2022-07-04 10:00] VITALS: BP 127/68
[~2022-07-04 10:00] MED LIST changes: +FERRIC CARBOXYMALTOSE INJ 750 MG in NS 250 ML (>50kg) IV ONE
[2022-07-04 10:50] VITALS: BP 121/82
[2022-07-04] MEDS ORDERED: diphenhydrAMINE 25MG CAP PO ONE (11:10)
[2022-07-04 12:00] VITALS: BP 118/78
[2022-07-04 13:05] VITALS: BP 127/74
== END 2022-07-04 13:05 | disposition home or self-care (01) ==
LOC: M INFU 10:00
PROVIDERS: ATTEND Nurse Practitioner Adult Health
DX: D50.9 Iron deficiency anemia, unspecified (principal); Z88.0 Allergy status to penicillin; Z88.5 Allergy status to narcotic agent
CPT/HCPCS: 96365; 96366; J1439

== ENCOUNTER → 2022-11-06 | Outpatient (CLI) | payer OTHER ==
[~2022-11-06] MED LIST changes: -FERRIC CARBOXYMALTOSE INJ 750 MG in NS 250 ML (>50kg) IV ONE
[2022-11-06 11:23] LABS: BASO % 0.8 % (0.0-1.0); EOS # 0.1 10^3/uL (0.0-0.5); EOS % 1.2 % (0.0-3.0); HEMATOCRIT 35.3 % (36.0-47.0); HEMOGLOBIN 11.3 g/dl (12.0-15.5); LYMPH # 1.6 10^3/uL (1.5-5.0); LYMPH % 30.7 % (24.0-44.0); MEAN CORPUSCULAR VOLUME 87.6 fl (80.0-96.0); MONO # 0.5 10^3/uL (0.0-0.8); MONO % 10.2 % (2.0-8.0); NEUTROPHILS # 2.9 10^3/uL (1.5-8.5); NEUTROPHILS % 56.7 % (36.0-66.0); PLATELET COUNT, AUTOMATED 318 10^3/uL (150-450); RED BLOOD COUNT 4.03 10^6/uL (4.00-5.40); WHITE BLOOD COUNT 5.1 10^3/uL (4.0-10.0)
[2022-11-06 11:35] LABS: PERCENT SATURATION 9.7 % (13.2-45.0)
[2022-11-06 11:53] LABS: INR 1.03; PROTHROMBIN TIME 13.2 SECONDS (12.5-14.5)
[2022-11-06 11:54] LABS: PARTIAL THROMBOPLASTIN TIME 27.7 SECONDS (24.8-34.2)
[2022-11-08 02:08] LABS: FACTOR 8 RISTOCETIN COFACTOR 52 % (50-200); FACTOR VIII ACTIVITY 105 % (56-140); FACTOR VIII AG (VON WILLEBRAN) 83 % (50-200)
== END ==
LOC: M LAB 09:56
PROVIDERS: ATTEND Family Medicine
DX: Z84.81 Family history of carrier of genetic disease (principal); D50.9 Iron deficiency anemia, unspecified

== ENCOUNTER → 2022-11-12 | Outpatient (CLI) | payer OTHER | LOC: M RAD 09:35 | PROVIDERS: ATTEND Family Medicine | DX: R07.81 Pleurodynia (principal) ==

== ENCOUNTER → 2022-12-30 | Outpatient (CLI) | payer OTHER ==
[~2022-12-30] MED LIST changes: +PROHANCE 279.3MG/ML 15ML VIAL ONE
== END ==
LOC: M PLAIMG 09:37
PROVIDERS: ATTEND Family Medicine
DX: R92.8 Other abnormal and inconclusive findings on diagnostic imaging of breast (principal); Z80.3 Family history of malignant neoplasm of breast; R59.0 Localized enlarged lymph nodes
CPT/HCPCS: A9576; C8908

== ENCOUNTER → 2023-01-04 | Outpatient (REF) | payer OTHER ==
[~2023-01-04] MED LIST changes: -PROHANCE 279.3MG/ML 15ML VIAL ONE
== END ==
LOC: M WUC 17:46
PROVIDERS: ATTEND Student in an Organized Health Care Education/Training Program
DX: R30.0 Dysuria (principal)

== ENCOUNTER → 2023-01-09 | Outpatient (CLI) | payer OTHER ==
[2023-01-09 10:49] LABS: FREE T4 0.88 NG/DL (0.89-1.76); THYROID STIMULATING HORMONE 0.624 uIU/ML (0.55-4.78)
== END ==
LOC: M LAB 09:41
PROVIDERS: ATTEND Obstetrics & Gynecology Obstetrics
DX: Z71.9 Counseling, unspecified (principal)

== ENCOUNTER → 2023-02-11 | Outpatient (CLI) | payer OTHER ==
[2023-02-11 10:31] LABS: BASO # 0.1 10^3/uL (0.0-0.2); BASO % 1.1 % (0.0-1.0); EOS # 0.1 10^3/uL (0.0-0.5); EOS % 1.5 % (0.0-3.0); HEMATOCRIT 40.4 % (36.0-47.0); HEMOGLOBIN 13.2 g/dl (12.0-15.5); LYMPH # 1.9 10^3/uL (1.5-5.0); LYMPH % 36.1 % (24.0-44.0); MEAN CORPUSCULAR HEMOGLOBIN 30.1 pg (27.0-33.0); MEAN CORPUSCULAR HGB CONC 32.7 g/dl (32.0-36.5); MEAN CORPUSCULAR VOLUME 92.2 fl (80.0-96.0); MONO # 0.5 10^3/uL (0.0-0.8); MONO % 9.6 % (2.0-8.0); NEUTROPHILS # 2.8 10^3/uL (1.5-8.5); NEUTROPHILS % 51.5 % (36.0-66.0); PLATELET COUNT, AUTOMATED 272 10^3/uL (150-450); RED BLOOD COUNT 4.38 10^6/uL (4.00-5.40); WHITE BLOOD COUNT 5.3 10^3/uL (4.0-10.0)
[2023-02-11 11:05] LABS: FERRITIN 31.9 NG/ML (7.3-270.7)
== END ==
LOC: M LAB 09:56
PROVIDERS: ATTEND Family Medicine
DX: D50.9 Iron deficiency anemia, unspecified (principal)

== ENCOUNTER → 2023-10-13 | Outpatient (REF) | payer OTHER | LOC: M LAB REF 12:19 | PROVIDERS: ATTEND Nurse Practitioner Adult Health | DX: R19.5 Other fecal abnormalities (principal) ==

== ENCOUNTER 2024-05-26 12:33 | Outpatient (CLI) | payer OTHER ==
[~2024-05-26] VITALS: Ht 162.6 cm; Wt 68.0 kg
[~2024-05-26 12:33] MED LIST changes: +ALBUTEROL SULFATE 2.5MG/0.5ML INH NEB SOLN INH PRN; +EPINEPHrine INJ 1 MG/ML 1ML AMP IM PRN; +diphenhydrAMINE 50MG/ML VIAL IV PRN; +methylPREDNISolone 125MG 2ML VIAL IV PRN
[2024-05-26 13:00] VITALS: BP 127/71; O2SAT 100
[2024-05-26] MEDS ORDERED: NS (Normal Saline) 0.9% 1,000 ML IV SCH (13:00)
[2024-05-26] MEDS: FERRIC CARBOXYMALTOSE 750 MG (VIAL MATE) IN 100ML NS IV ONE (13:05)
[2024-05-26 13:34] VITALS: BP 157/81; O2SAT 100
== END 2024-05-26 13:35 ==
LOC: M INFU 12:33
PROVIDERS: ATTEND Nurse Practitioner Adult Health
DX: D50.9 Iron deficiency anemia, unspecified (principal); Z88.0 Allergy status to penicillin; Z88.5 Allergy status to narcotic agent
CPT/HCPCS: 96365; J1439

== ENCOUNTER 2024-06-02 13:15 | Outpatient (CLI) | payer OTHER ==
[~2024-06-02] VITALS: Ht 162.6 cm; Wt 68.1 kg
[2024-06-02 13:15] VITALS: BP 129/73; O2SAT 100
[~2024-06-02 13:15] MED LIST changes: +NS (Normal Saline) 0.9% 1,000 ML IV SCH
[2024-06-02] MEDS: FERRIC CARBOXYMALTOSE 750 MG (VIAL MATE) IN 100ML NS IV ONE (13:19)
[2024-06-02 13:40] VITALS: BP 119/73; O2SAT 100
== END 2024-06-02 13:40 ==
LOC: M INFU 13:15
PROVIDERS: ATTEND Nurse Practitioner Adult Health
DX: D50.9 Iron deficiency anemia, unspecified (principal)
CPT/HCPCS: 96365; J1439

== ENCOUNTER → 2024-06-13 | Outpatient (CLI) | payer OTHER ==
[~2024-06-13] MED LIST changes: -ALBUTEROL SULFATE 2.5MG/0.5ML INH NEB SOLN INH PRN; -EPINEPHrine INJ 1 MG/ML 1ML AMP IM PRN; -NS (Normal Saline) 0.9% 1,000 ML IV SCH; -diphenhydrAMINE 50MG/ML VIAL IV PRN; -methylPREDNISolone 125MG 2ML VIAL IV PRN
== END ==
LOC: M WHC 09:41
PROVIDERS: ATTEND Obstetrics & Gynecology
DX: N93.9 Abnormal uterine and vaginal bleeding, unspecified (principal); N88.8 Other specified noninflammatory disorders of cervix uteri

== ENCOUNTER → 2024-06-17 | Outpatient (CLI) | payer OTHER | LOC: M WHC 10:01 | PROVIDERS: ATTEND Nurse Practitioner Adult Health | DX: Z12.31 Encounter for screening mammogram for malignant neoplasm of breast (principal); Z80.3 Family history of malignant neoplasm of breast ==

== ENCOUNTER → 2025-01-11 | Outpatient (REF) | payer OTHER ==
[~2025-01-11] MED LIST changes: +CLON0.5T2 PO; +CVS10CAP PO; +DEXT37.54 PO; +FLUV50TA PO; +MACA500C2 PO; +METH1CAP17 PO; +VITA100093 PO
== END ==
LOC: M LAB REF 17:24
PROVIDERS: ATTEND Family Medicine
DX: R05.2 Subacute cough (principal)